=== PATIENT | male | born 1975 | race African-American/Black ===

== ENCOUNTER 2021-01-28 11:08 | Emergency (ER) | payer OTHER ==
[~2021-01-28] VITALS: Ht 170.2 cm; Wt 68.0 kg
[~2021-01-28 11:08] MED LIST: ANTIVERT25 MG PO; NOHOMEMEDICATIONS; ZOFRAN8 MG PO
[2021-01-28 12:27] LABS: URINE BILIRUBIN NEGATIVE (Negative); URINE BLOOD 1+ (Negative); URINE CLARITY CLEAR; URINE COLOR YELLOW; URINE GLUCOSE-RANDOM* NEGATIVE (Negative); URINE KETONES NEGATIVE (Negative); URINE LEUKOCYTES-REFLEX NEGATIVE (Negative); URINE NITRITE-REFLEX NEGATIVE (Negative); URINE PROTEIN (DIPSTICK) NEGATIVE (Negative); URINE SPECIFIC GRAVITY 1.025 (1.005-1.035); URINE UROBILINOGEN 0.2 E.U./dl (0.2-1.0)
[2021-01-28 12:38] LABS: SQUAMOUS 0-3 Few /LPF (0-3)
[2021-01-28 12:39] LABS: BACTERIA-REFLEX 1-9 Few /HPF (None Seen); CASTS None Seen /LPF (None Seen); CRYSTALS None Seen /LPF (None Seen); URINE RBC 3-10 Few /HPF (NONE SEEN); URINE WBC-REFLEX 0-5 Rare /HPF (0-5)
[2021-01-28] MEDS ORDERED: CYCLOBENZAPRINE5 MG PO ×3 (12:51→13:14)
[2021-01-28] MEDS ORDERED: NORCO5 PO ×4 (12:51→13:15)
[2021-01-28 13:07] LABS: ABSOLUTE NEUTROPHILS 3.1 thou/uL (1.4-8.2); BASOPHILS 0.4 % (0.0-2.0); EOSINOPHILS 2.2 % (0.0-3.0); HEMATOCRIT 46.9 % (42.0-52.0); HEMOGLOBIN 15.3 gm/dL (14.0-18.0); LYMPHOCYTES 29.9 % (24.0-44.0); MCH 29.5 pg (26.0-34.0); MCHC 32.7 g/dL (28.0-37.0); MCV 90.3 fL (80.0-100.0); MONOCYTES 6.5 % (1.0-8.0); PLATELET COUNT 180 thou/uL (150-400); RBC 5.19 mil/uL (4.50-6.00); RDW 13.8 % (10.5-14.5); WBC 5.1 thou/uL (4.0-11.0)
[2021-01-28 13:16] LABS: CALCIUM 9.7 mg/dL (8.5-10.1); CREATININE 1.1 mg/dL (0.7-1.3); POTASSIUM 4.7 mmol/L (3.5-5.1)
[2021-01-28 13:32] VITALS: BP 145/95
== END 2021-01-28 13:31 | disposition home or self-care (01) ==
LOC: ER 11:08
PROVIDERS: Physician Assistant
DX: M51.26 Other intervertebral disc displacement, lumbar region (principal); Z79.899 Other long term (current) drug therapy

== ENCOUNTER 2021-02-15 11:03 | Emergency (ER) | payer OTHER ==
[~2021-02-15] VITALS: Ht 170.2 cm; Wt 69.0 kg
[~2021-02-15 11:03] MED LIST changes: +CYCLOBENZAPRINE5 MG PO; +NORCO5 PO
[2021-02-15 11:04] VITALS: BP 145/97
== END 2021-02-15 11:35 | disposition home or self-care (01) ==
LOC: ER 11:03
DX: R03.0 Elevated blood-pressure reading, without diagnosis of hypertension (principal); G89.29 Other chronic pain; M54.9 Dorsalgia, unspecified; F17.210 Nicotine dependence, cigarettes, uncomplicated

== ENCOUNTER → 2021-03-18 | Outpatient (CLI) | payer OTHER | LOC: MRI 03-08 15:07 | PROVIDERS: ATTEND Specialist | DX: M51.36 Other intervertebral disc degeneration, lumbar region (principal); M41.86 Other forms of scoliosis, lumbar region; M47.816 Spondylosis without myelopathy or radiculopathy, lumbar region ==